=== PATIENT | female | born 1950 | race Caucasian/White ===

== ENCOUNTER → 2017-05-12 | Outpatient (CLI) | payer BC, OTHER ==
[2017-05-12 07:51] LABS: BASO % 0.7 % (0.0-1.0); EOS # 0.2 K/mm3 (0.0-0.50); EOS % 3.5 % (0.0-3.0); LARGE UNSTAINED CELL # 0.2 K/mm3 (0.0-0.4); LARGE UNSTAINED CELL % 2.5 % (0.0-4.0); LYMPH # 2.5 K/mm3 (1.5-4.5); LYMPH % 41.5 % (24.0-44.0); MEAN CORPUSCULAR HEMOGLOBIN 31.1 pg (27.0-33.0); MEAN CORPUSCULAR VOLUME 91.3 fl (80.0-96.0); MONO # 0.4 K/mm3 (0.0-0.8); MONO % 6.7 % (0.0-5.0); NEUTROPHILS # 2.7 K/mm3 (1.8-7.7); PLATELET COUNT, AUTOMATED 270 k/mm3 (150-450); RED CELL DISTRIBUTION WIDTH 12.7 % (11.5-14.5); WHITE BLOOD COUNT 6.1 K/mm3 (4.0-10.0)
[2017-05-12 08:32] LABS: PERCENT SATURATION 22.9 % (13.2-45.0)
== END ==
LOC: M LAB 07:07
PROVIDERS: ATTEND Orthopaedic Surgery
DX: D64.9 Anemia, unspecified (principal)

== ENCOUNTER → 2018-04-10 | Outpatient (CLI) | payer MEDICARE, BC ==
[2018-04-10 16:31] LABS: BASO % 0.6 % (0.0-1.0); EOS # 0.2 10^3/uL (0.0-0.50); HEMATOCRIT 42.2 % (36.0-47.0); HEMOGLOBIN 13.8 g/dl (12.0-15.5); IMMATURE GRANULOCYTE % 0.3 % (0-3.0); LYMPH % 42.8 % (24.0-44.0); MEAN CORPUSCULAR HEMOGLOBIN 30.1 pg (27.0-33.0); MEAN CORPUSCULAR HGB CONC 32.7 g/dl (32.0-36.5); MEAN CORPUSCULAR VOLUME 92.1 fl (80.0-96.0); MONO # 0.6 10^3/uL (0.0-0.8); NEUTROPHILS # 3.2 10^3/uL (1.8-7.7); NEUTROPHILS % 45.3 % (36.0-66.0); PLATELET COUNT, AUTOMATED 267 10^3/uL (150-450); RED BLOOD COUNT 4.58 10^6/uL (4.00-5.40)
[2018-04-10 17:25] LABS: ALBUMIN 4.1 GM/DL (3.2-5.2)
[2018-04-10 17:25] LABS: FERRITIN 131 NG/ML (8-252); IRON (FE) 102 UG/DL (50-170); PERCENT SATURATION 29.3 % (13.2-45.0); TOTAL IRON BINDING CAPACITY 348 UG/DL (250-450)
== END ==
LOC: M LAB 15:46
DX: Z01.818 Encounter for other preprocedural examination (principal); D63.8 Anemia in other chronic diseases classified elsewhere; M16.9 Osteoarthritis of hip, unspecified; M25.551 Pain in right hip
CPT/HCPCS: 82040

== ENCOUNTER → 2018-09-26 | Outpatient (CLI) | payer MEDICARE, BC ==
--- NOTE | 2018-10-02 14:33 | DEXA ---
AP SPINE L1 - L4 1.155 -0.3 1.3 LT FEMUR TOTAL Replacement. LT NECK RT FEMUR TOTAL Replacement. RT NECK TOTAL BODY TOTAL Radius 33% 0.854 -0.3 1.2 COMMENTS: Normal bone densitometry of the spine. Normal bone densitometry of the left forearm. The density of the spine has decreased 9.3% since the initial exam on 01/29/2003. The spine density has decreased 11.2% since the most recent exam on 11/27/2007. FOLLOW-UP: Recommendation for the next bone density exam: 5 years. EMERITAD
== END ==
LOC: M WHC 11:04
PROVIDERS: ATTEND Nurse Practitioner Women's Health
DX: Z13.820 Encounter for screening for osteoporosis (principal); Z78.0 Asymptomatic menopausal state

== ENCOUNTER → 2019-02-10 | Outpatient (CLI) | payer MEDICARE, BC, OTHER ==
[2019-02-10 12:05] LABS: BLOOD UREA NITROGEN 13 MG/DL (7-18); CREATININE FOR GFR 0.72 MG/DL (0.55-1.30); GLOMERULAR FILTRATION RATE > 60.0 (>45)
== END ==
LOC: M LAB 11:11
PROVIDERS: ATTEND Otolaryngology
DX: H93.12 Tinnitus, left ear (principal); H90.3 Sensorineural hearing loss, bilateral

== ENCOUNTER → 2019-02-14 | Outpatient (CLI) | payer MEDICARE, BC, OTHER ==
[~2019-02-14] MED LIST: PROHANCE 279.3MG/ML 15ML VIAL (A9576) As Ordered ONE; PROHANCE 279.3MG/ML 5ML VIAL (A9576) As Ordered ONE
--- NOTE | 2019-02-14 16:06 | REP ---
MR IACS WITHOUT AND WITH CONTRAST: HISTORY: Left tinnitus. CONTRAST: ProHance 20 mL Several punctate areas of increased signal intensity on T2-weighted images are present in the periventricular and subcortical white matter. This represents small vessel ischemic disease. There is no intraparenchymal hemorrhage, infarct, mass or midline shift. There is no abnormal enhancement. The ventricular system is normal in appearance. There is no extracerebral collection. There is no cerebellopontine angle mass. The inner ear structures are normal in appearance. Minimal mucosal thickening is present in the left mastoid air cells. The right mastoid air cells are clear. Minimal mucosal thickening is present in the left maxillary sinus. IMPRESSION: Minimal small vessel ischemic disease. Electronically Signed by Jalen Moreno MD 02/14/2019 04:07 P
== END ==
LOC: M RAD 14:08
PROVIDERS: ATTEND Otolaryngology
DX: I67.82 Cerebral ischemia (principal); H93.12 Tinnitus, left ear
CPT/HCPCS: 70553; A9576

== ENCOUNTER → 2019-07-03 | Outpatient (REF) | payer MEDICARE, OTHER | LOC: M LAB REF 11:39 | PROVIDERS: ATTEND Nurse Practitioner Family | DX: Z96.641 Presence of right artificial hip joint (principal); T56.891A Toxic effect of other metals, accidental (unintentional), initial encounter ==

== ENCOUNTER → 2021-01-08 | Outpatient (CLI) | payer MEDICARE, OTHER | LOC: M LABSMTC 10:35 | PROVIDERS: ATTEND Anesthesiology | DX: Z01.812 Encounter for preprocedural laboratory examination (principal); Z20.822 Contact with and (suspected) exposure to COVID-19 ==

== ENCOUNTER 2021-01-13 07:30 | Day surgery (SDC) | payer MEDICARE, BC, OTHER ==
[~2021-01-13] VITALS: Ht 172.7 cm; Wt 89.4 kg
[~2021-01-13 07:30] MED LIST changes: +CLAR10CA3 PO; +ECOT81TA5 PO; +ESCITALOPRAM; +NS 1,000 ML IV ONE; +OMEP-218; -PROHANCE 279.3MG/ML 15ML VIAL (A9576) As Ordered ONE; -PROHANCE 279.3MG/ML 5ML VIAL (A9576) As Ordered ONE; +ROSU5TAB5; +SUPECAP7 PO; +THERTAB52 PO
[2021-01-13] MEDS ORDERED: propofoL 500 MG/50 ML VIAL As Ordered ONE (08:32)
[2021-01-13] MEDS ORDERED: LIDOCAINE 2% 100MG/5ML SDV (FOR ANES.) As Ordered ONE (08:32)
--- NOTE | 2021-01-13 08:48 | ROOR ---
Patient Name: Kay Espinal Procedure Date: 01/13/2021 8:27 AM Date of : 1950 Age: 70 Room: [facility] Gender: Female Note Status: Finalized Procedure: Colonoscopy Indications: Screening for colorectal malignant neoplasm Providers: Francisco MILLER MD Referring MD: Ольга Sandoval NP Requesting Provider: Medicines: Monitored Anesthesia Care Complications: No immediate complications. Procedure: Pre-Anesthesia Assessment: - The heart rate, respiratory rate, oxygen saturations, blood pressure, adequacy of pulmonary ventilation, and response to care were monitored throughout the procedure. The Colonoscope was introduced through the anus and advanced to the terminal ileum, with identification of the appendiceal orifice and IC valve. The colonoscopy was performed without difficulty. The patient tolerated the procedure well. The quality of the bowel preparation was good. Findings: The perianal and digital rectal examinations were normal. Internal hemorrhoids were found during retroflexion. The hemorrhoids were medium-sized. The entire examined colon appeared normal on direct and retroflexion views. Impression: - Internal hemorrhoids. - The entire examined colon is normal on direct and retroflexion views. - No specimens collected. Recommendation: - Repeat colonoscopy in 10 years for screening purposes. Procedure Code(s): --- Professional --- 83857, Colonoscopy, flexible; diagnostic, including collection of specimen(s) by brushing or washing, when performed (separate procedure) Diagnosis Code(s): --- Professional --- K64.8, Other hemorrhoids Z12.11, Encounter for screening for malignant neoplasm of colon CPT copyright 2019 [employer]. All rights reserved. The codes documented in this report are preliminary and upon electronic news gathering editor review may be revised to meet current compliance requirements. Francisco Miller MD Francisco MILLER MD 01/13/2021 8:47:34 AM Electronically signed by Francisco MILLER MD Number of Addenda: 0 Note Initiated On: 01/13/2021 8:27 AM Estimated Blood Loss: Estimated blood loss: none.
[2021-01-13 09:10] VITALS: BP 115/60
== END 2021-01-13 09:11 | disposition home or self-care (01) ==
LOC: M OPP 07:30
PROVIDERS: ATTEND Internal Medicine Gastroenterology
DX: Z12.11 Encounter for screening for malignant neoplasm of colon (principal); K64.8 Other hemorrhoids; G47.30 Sleep apnea, unspecified; Z79.82 Long term (current) use of aspirin; Z79.899 Other long term (current) drug therapy; Z88.1 Allergy status to other antibiotic agents

== ENCOUNTER → 2023-10-17 | Outpatient (REF) | payer MEDICARE, OTHER ==
[~2023-10-17] MED LIST changes: -NS 1,000 ML IV ONE; +OMEP-173; -OMEP-218
[2023-10-17 18:28] LABS: HEMATOCRIT 43.1 % (36.0-47.0); HEMOGLOBIN 13.8 g/dl (12.0-15.5); MEAN CORPUSCULAR HEMOGLOBIN 30.3 pg (27.0-33.0); MEAN CORPUSCULAR VOLUME 94.7 fl (80.0-96.0); PLATELET COUNT, AUTOMATED 253 10^3/uL (150-450); RED BLOOD COUNT 4.55 10^6/uL (4.00-5.40); WHITE BLOOD COUNT 5.7 10^3/uL (4.0-10.0)
[2023-10-17 18:54] LABS: ALKALINE PHOSPHATASE 86 U/L (46-116); ALT/SGPT 34 U/L (7.0-40); AST/SGOT 21 U/L (<34); BILIRUBIN,TOTAL 0.5 MG/DL (0.3-1.2); BLOOD UREA NITROGEN 17 MG/DL (9-23); CALCIUM LEVEL 9.9 MG/DL (8.3-10.6); CARBON DIOXIDE LEVEL 27 MMOL/L (20-31); CHLORIDE LEVEL 106 MMOL/L (98-107); CHOLESTEROL LEVEL 179 MG/DL (<200); CHOLESTEROL RISK RATIO 3.45 (<5); CREATININE FOR GFR 0.75 MG/DL (0.55-1.30); GLOMERULAR FILTRATION RATE > 60.0 (>39); GLUCOSE, FASTING 102 MG/DL (74-106); HDL CHOLESTEROL 51.8 MG/DL (>40); LDL CHOLESTEROL 98.8 MG/DL (<100); NON-HDL-C 127.2 MG/DL; POTASSIUM SERUM 4.6 MMOL/L (3.5-5.1); SODIUM LEVEL 139 MMOL/L (136-145); TOTAL PROTEIN 7.1 G/DL (5.7-8.2); TRIGLYCERIDES LEVEL 142 MG/DL (<150)
[2023-10-17 18:57] LABS: THYROID STIMULATING HORMONE 4.365 uIU/ML (0.55-4.78)
== END ==
LOC: M LABDRAWC 17:49
PROVIDERS: ATTEND Registered Nurse
DX: E78.00 Pure hypercholesterolemia, unspecified (principal); K21.9 Gastro-esophageal reflux disease without esophagitis; Z79.899 Other long term (current) drug therapy; R61 Generalized hyperhidrosis

== ENCOUNTER → 2024-12-03 | Outpatient (CLI) | payer MEDICARE, BC ==
[~2024-12-03] MED LIST changes: +ROSU5TAB49; -ROSU5TAB5
== END ==
LOC: M RAD 08:56
PROVIDERS: ATTEND Registered Nurse
DX: Z13.6 Encounter for screening for cardiovascular disorders (principal); Z82.49 Family history of ischemic heart disease and other diseases of the circulatory system

== ENCOUNTER → 2025-05-31 | Outpatient (CLI) | payer MEDICARE, BC | LOC: M EKG 15:07 | PROVIDERS: ATTEND Registered Nurse | DX: Z01.818 Encounter for other preprocedural examination (principal) ==

== ENCOUNTER → 2025-06-26 | Outpatient (CLI) | payer MEDICARE, BC | LOC: M WUC 09:52 | PROVIDERS: ATTEND Internal Medicine Rheumatology | DX: M25.50 Pain in unspecified joint (principal); H04.123 Dry eye syndrome of bilateral lacrimal glands; R21 Rash and other nonspecific skin eruption ==

== ENCOUNTER → 2025-06-26 | Outpatient (REF) | payer MEDICARE, BC ==
[2025-06-26 15:21] LABS: APPEARANCE, URINE CLEAR (CLEAR); BACTERIA, URINE AUTO NEGATIVE (NEGATIVE); BILIRUBIN, URINE AUTO NEGATIVE (NEGATIVE); BLOOD, URINE BLOOD NEGATIVE (NEGATIVE); GLUCOSE, URINE (UA) AUTO NEGATIVE (NEGATIVE); KETONE, URINE AUTO NEGATIVE (NEGATIVE); LEUKOCYTE ESTERASE, URINE AUTO NEGATIVE (NEGATIVE); NITRITE, URINE AUTO NEGATIVE (NEGATIVE); PROTEIN, URINE AUTO NEGATIVE (NEGATIVE); RBC, URINE AUTO 0 /HPF (0-3); SPECIFIC GRAVITY URINE AUTO 1.010 (1.002-1.035); SQUAMOUS EPITHELIAL CELL UR AU 0 /HPF (0-6); UROBILINOGEN, URINE AUTO 0.2 mg/dL (0.0-2.0); WBC, URINE AUTO 0 /HPF (0-3)
[2025-06-26 15:34] LABS: BASO # 0.1 10^3/uL (0.0-0.2); BASO % 0.9 % (0.0-1.0); EOS # 0.3 10^3/uL (0.0-0.5); EOS % 4.3 % (0.0-3.0); LYMPH # 2.5 10^3/uL (1.5-5.0); LYMPH % 43.1 % (24.0-44.0); MONO # 0.6 10^3/uL (0.0-0.8); MONO % 10.2 % (2.0-8.0); NEUTROPHILS # 2.4 10^3/uL (1.5-8.5); NEUTROPHILS % 41.3 % (36.0-66.0); PLATELET COUNT, AUTOMATED 264 10^3/uL (150-450)
[2025-06-26 15:37] LABS: COMPLEMENT C4 40.2 MG/DL (12-36)
[2025-06-26 15:38] LABS: ALT/SGPT 37 U/L (7.0-40); AST/SGOT 27 U/L (<34); C REACTIVE PROTEIN QUANTITATIV < 0.50 MG/DL (<1.0); CALCIUM LEVEL 9.9 MG/DL (8.3-10.6); CARBON DIOXIDE LEVEL 29 MMOL/L (20-31); CHLORIDE LEVEL 105 MMOL/L (98-107); CREATININE FOR GFR 0.76 MG/DL (0.55-1.30); GLOMERULAR FILTRATION RATE 83.2 (>39); POTASSIUM SERUM 4.1 MMOL/L (3.5-5.1); SODIUM LEVEL 144 MMOL/L (136-145)
[2025-06-26 15:42] LABS: ERYTHROCYTE SEDIMENTATION RATE 20 mm/hr (0-30)
[2025-06-26 15:59] LABS: TOTAL PROTEIN,RANDOM URINE < 6.0 MG/DL (0.0-14.0)
== END ==
LOC: M SFHCRHEU 09:03
PROVIDERS: ATTEND Internal Medicine Rheumatology
DX: M25.50 Pain in unspecified joint (principal); H04.123 Dry eye syndrome of bilateral lacrimal glands; R21 Rash and other nonspecific skin eruption